=== PATIENT | male | born 1965 | race Caucasian/White ===

== ENCOUNTER 2019-07-06 13:19 | Emergency (ER) | payer OTHER ==
[~2019-07-06] VITALS: Ht 198.1 cm; Wt 99.8 kg
== END 2019-07-06 16:25 | disposition home or self-care (01) ==
LOC: ER 13:19
DX: S61.422A Laceration with foreign body of left hand, initial encounter (principal); W26.0XXA Contact with knife, initial encounter; Y93.89 Activity, other specified; Y92.098 Other place in other non-institutional residence as the place of occurrence of the external cause; Y99.8 Other external cause status